=== PATIENT | male | born 1975 | race Caucasian/White ===

== ENCOUNTER → 2017-05-14 10:35 | Outpatient (CLI) | payer BC, SELFPAY ==
[2017-05-14 12:11] LABS: AST(SGOT) 38 U/L (15-37); Alanine Aminotransfer ALT/SGPT 67 U/L (16-61); Albumin, Serum 3.7 g/dL (3.2-5.0); Alkaline Phosphatase 63 U/L (45-117); Anion Gap 9 (5-15); BUN 10 mg/dL (7-18); BUN/Creat Ratio 14.7 RATIO (10-20); Calcium,Total 8.9 mg/dL (8.5-10.1); Chloride 105 mmol/L (98-107); Cholesterol 172 mg/dL (200); Creatinine, Serum 0.68 mg/dL (0.70-1.30); EST Glomerular Filtration Rate 135 mL/min (>60); Est Glom Filt Rate - Afr Amer 163 mL/min (>60); Globulin 3.8 g/dL (2.2-4.2); Glucose 109 mg/dL (74-106); High Density Lipoprotein 28 mg/dL; Potassium 4.3 mmol/L (3.5-5.1); Protein, Total 7.5 g/dL (6.4-8.2); Sodium Level 139 mmol/L (136-145); Triglycerides 272 mg/dL; Very Low Density Lipoprotein 54 mg/dL (5-40)
[2017-05-14 12:16] LABS: Hemoglobin A1c 6.8 % (4.2-6.3)
[2017-05-14 12:23] LABS: Microalbumin,Random Urine 6.9 mg/L (NO RANGE EST.); Microalbumin:Creatinine Ratio 5.8 mg/g CRE (<30 mg/g CRE)
== END ==
PROVIDERS: Family Provider Family Medicine; PCP Family Medicine; Visit Provider Family Medicine
DX: E11.9 Type 2 diabetes mellitus without complications (principal); E78.5 Hyperlipidemia, unspecified
CPT/HCPCS: 36415; 80053; 80061; 82043; 82570; 83036

== ENCOUNTER → 2017-08-05 11:27 | Outpatient (CLI) | payer BC, SELFPAY ==
--- NOTE | 2017-08-05 11:32 | RAD_ITS ---
STUDY: X-RAY CHEST REASON FOR EXAM: Male, 42 years old. Cough. Fever. Flulike symptoms. TECHNIQUE: PA and lateral views of the chest. COMPARISON: None. FINDINGS: The lungs are clear and expanded. There is no demonstrated pleural abnormality. Normal size heart. Normal mediastinum and han. Normal visualized pulmonary arteries. Normal visualized aortic arch and descending thoracic aorta. There are diffuse degenerative changes of the visualized thoracic spine. Normal visualized ribs, clavicles, and shoulders. There is no demonstrated abnormality of the visualized soft tissue structures of the upper abdomen. RAD/Chest PA and Lateral IMPRESSION: Degenerative changes, as described above. No demonstrated acute cardiopulmonary process. Electronically Signed: Kenan Saez MD at 15:51 EDT , Service support ,
[2017-08-05 14:29] LABS: Absolute Lymphocyte Count 1.79 X10^3/ul (0.83-4.51); Absolute Neutrophil Count 4.9 X10^3/uL (2.0-7.7); Basophil# 0.03 X10^3/uL; Basophil% 0.4 % (0-1); Eosinophil# 0.11 X10^3/uL; Eosinophils% 1.5 % (0-5); Hematocrit 47.4 % (40-54); Hemoglobin 16.1 g/dl (13.0-16.5); Lymphocyte # 1.79 X10^3/ul (4.0); Lymphocyte % 24.2 % (19-41); Mean Corpuscular Hgb 31.3 pg (27.0-32.0); Mean Corpuscular Volume 92.2 fL (80-94); Mean Platelet Vol. 11.4 fl (6.2-12.0); Monocyte# 0.58 X10^3/uL; Monocyte% 7.8 % (0-10); Neutrophil # 4.87 X10^3/uL (2.7-7.7); Neutrophil % 65.8 % (47-70); Platelet Count 221 K/mm3 (150-450); RBC Distribution Width CV 12.6 % (11.6-14.6); RBC Distribution Width SD 42.2 fl (35.1-43.9); Red Blood Count 5.14 M/mm3 (4.6-6.2); White Blood Count 7.4 K/mm3 (4.4-11.0)
[2017-08-05 14:31] LABS: POSITIVE COUNT NO; POSITIVE DIFFERENTIAL NO; POSITIVE MORPHOLOGY NO
== END ==
LOC: MTLAB 11:30
PROVIDERS: Family Provider Family Medicine; PCP Family Medicine; Visit Provider Family Medicine
DX: R05 Cough (principal); E11.9 Type 2 diabetes mellitus without complications
CPT/HCPCS: 36415; 71046; 85025

== ENCOUNTER 2017-11-18 18:59 | Emergency (ER) | payer BC, SELFPAY ==
[2017-11-18 19:00] VITALS: BP 165/100; PULSE 107; PULSE 113; RESP 18; TEMP 36.3; O2SAT 97; BMI 37.6
[2017-11-18] MEDS: Morphine 4 MG/ML Syringe IV (20:00)
[2017-11-18] MEDS: Diphth,Pertuss(Acell),Tet Vac 0.5 ML Vial IM (20:04)
[2017-11-18] MEDS: Cefazolin 1 GM/50 ML BAG IV (20:04)
--- NOTE | 2017-11-18 20:20 | RAD_ITS ---
STUDY: X-RAY - LEFT RADIUS AND ULNA REASON FOR EXAM: Male, 42 years old. Dog bite. TECHNIQUE: Tube view(s) of the forearm. COMPARISON: None. FINDINGS: There is soft tissue swelling and irregularity about the mid forearm. There is no opaque foreign body Normal visualized radius. Normal visualized ulna. There is no acute fracture, dislocation or destructive osseous pathology. The wrist and elbow are intact. RAD/Forearm 2 Views IMPRESSION: Soft tissue irregularity of the mid forearm without radiopaque foreign body. There is no fracture or dislocation. Electronically Signed: Mohan Mojica DO at 20:36 EDT Tel [phone], Service support ,
[2017-11-18 21:15] VITALS: BP 150/96; PULSE 106; RESP 16; O2SAT 97
--- NOTE | 2017-11-18 21:45 | ED.VIS.GEN ---
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 The dog has not been ill, shot status is unknown to the patient. He is right-hand dominant. Patient's last tetanus shot is unknown. He is unable to move his hand and having significant amount of pain in the forearm. No other injuries. Takes no daily prescriptions. Past Medical History - Allergies and Home Meds Allergies/Adverse Reactions: Allergies No Known Allergies Allergy (Verified 11/18/17 20:00) Primary Care Physician: Leo Porter DO [Primary Care Provider] - Past Medical History: None Lives: With Family Smoking Status: Former smoker Review of Systems General: Denies: Chills, Fever Cardiovascular: Denies: Chest pain, Palpitations Respiratory: Denies: Dyspnea, Cough Gastrointestinal: Denies: Abdominal pain, Nausea, Vomiting Musculoskeletal: Reports: Swelling - Left forearm, Extremity Pain - Left forearm. Inability to move left hand. Skin: Reports: Abrasions, Wounds Neurological: Reports: Numbness - Left fingers 2-5 Physical Exam Vital Signs/Narrative: Vital Signs Temp Pulse Resp BP Pulse Ox 11/18/17 21:15 106 H 16 150/96 H 97 11/18/17 19:00 97.4 F L 113 H 18 165/100 H 97 Inital Vital Signs reviewed: Yes General: Well nourished, Well developed Head: Normocephalic, Atraumatic Eyes: Perrl, EOMI Neck: Supple, Nontender Respiratory: No distress Extremities: Tenderness - Throughout left forearm. See below. No other injuries. Skin: Trauma - 5 lacerations to the left forearm, around the junction of the middle and distal thirds, both dorsal and volar in addition to at least 2 puncture wounds. Muscle is seen in several lacerations. They vary in length from 4cm to 8 cm, all full-thickness. There are also multiple abrasions in this area. No tendons are visible. The forearm is diffusely swollen and significantly tender throughout. He is holding his hand in a mildly relaxed fist formation and is unable to extend any of his fingers, he can barely move any of them. Sensation is intact throughout all 5 fingers, but decreased in 2-5. Normal sensation distally in the thumb. No hand or wrist injury. Normal range of motion about the elbow, not able to move the wrist secondary to pain. No other injuries. Neurological: Alert, Oriented x3, Cranial nerves II-XII grossly intact, Normal Gait, Parasthesia Psychological: Normal affect Diagnostic/Tx/Re-eval - Medical Decision Making The wounds were cleansed and dressed, he was given a tetanus booster/Adacel, and 1 g Ancef IV in addition to a dose of morphine. My concern is for nerve/tendon injury, he is difficult to evaluate because he cannot move his hand at all. I discussed with Dr. Segovia with orthopedics who recommends an emergent hand consultation. I discussed with Dr. Escobar with [facility] hand in [place], who states sending him to [facility] would be reasonable for hand evaluation. Patient is amenable to this but does not want to go by ambulance and wishes to go by private vehicle, he has someone to drive him. Accepted by ED physician there. ED Disposition - Plan for ED Patient: Disposition: [facility] Chief Complaint: Bite Diagnosis: Injury of left forearm, Dog bite of left forearm Referrals: Leo Porter DO [Primary Care Provider] -
--- NOTE | 2017-11-18 21:50 | ED.DCSUM_ITS ---
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 The dog has not been ill, shot status is unknown to the patient. He is right-hand dominant. Patient's last tetanus shot is unknown. He is unable to move his hand and having significant amount of pain in the forearm. No other injuries. Takes no daily prescriptions. Past Medical History - Allergies and Home Meds Allergies/Adverse Reactions: Allergies No Known Allergies Allergy (Verified 11/18/17 20:00) Primary Care Physician: Leo Porter DO [Primary Care Provider] - Past Medical History: None Lives: With Family Smoking Status: Former smoker Review of Systems General: Denies: Chills, Fever Cardiovascular: Denies: Chest pain, Palpitations Respiratory: Denies: Dyspnea, Cough Gastrointestinal: Denies: Abdominal pain, Nausea, Vomiting Musculoskeletal: Reports: Swelling - Left forearm, Extremity Pain - Left forearm. Inability to move left hand. Skin: Reports: Abrasions, Wounds Neurological: Reports: Numbness - Left fingers 2-5 Physical Exam Vital Signs/Narrative: Vital Signs Temp Pulse Resp BP Pulse Ox 11/18/17 21:15 106 H 16 150/96 H 97 11/18/17 19:00 97.4 F L 113 H 18 165/100 H 97 Inital Vital Signs reviewed: Yes General: Well nourished, Well developed Head: Normocephalic, Atraumatic Eyes: Perrl, EOMI Neck: Supple, Nontender Respiratory: No distress Extremities: Tenderness - Throughout left forearm. See below. No other injuries. Skin: Trauma - 5 lacerations to the left forearm, around the junction of the middle and distal thirds, both dorsal and volar in addition to at least 2 puncture wounds. Muscle is seen in several lacerations. They vary in length from 4cm to 8 cm, all full-thickness. There are also multiple abrasions in this area. No tendons are visible. The forearm is diffusely swollen and significantly tender throughout. He is holding his hand in a mildly relaxed fist formation and is unable to extend any of his fingers, he can barely move any of them. Sensation is intact throughout all 5 fingers, but decreased in 2- 5. Normal sensation distally in the thumb. No hand or wrist injury. Normal range of motion about the elbow, not able to move the wrist secondary to pain. No other injuries. Neurological: Alert, Oriented x3, Cranial nerves II-XII grossly intact, Normal Gait, Parasthesia Psychological: Normal affect Diagnostic/Tx/Re-eval - Medical Decision Making The wounds were cleansed and dressed, he was given a tetanus booster/Adacel, and 1 g Ancef IV in addition to a dose of morphine. My concern is for nerve/tendon injury, he is difficult to evaluate because he cannot move his hand at all. I discussed with Dr. Segovia with orthopedics who recommends an emergent hand consultation. I discussed with Dr. Escobar with [facility] hand in [place], who states sending him to [facility] would be reasonable for hand evaluation. Patient is amenable to this but does not want to go by ambulance and wishes to go by private vehicle, he has someone to drive him. Accepted by ED physician t here. ED Disposition - Plan for ED Patient: Disposition: [facility] Chief Complaint: Bite Diagnosis: Injury of left forearm, Dog bite of left forearm Referrals: Leo Porter DO [Primary Care Provider] -
[2017-11-18 22:08] VITALS: BP 163/87; PULSE 98; RESP 16; TEMP 36.9; O2SAT 97
== END 2017-11-18 22:09 | disposition short-term general hospital (02) ==
PROVIDERS: Emergency Provider Emergency Medicine; Family Provider Family Medicine; PCP Family Medicine
DX: S51.852A Open bite of left forearm, initial encounter (principal); S51.832A Puncture wound without foreign body of left forearm, initial encounter; W54.0XXA Bitten by dog, initial encounter; Y93.9 Activity, unspecified; Y92.9 Unspecified place or not applicable; Y99.9 Unspecified external cause status; Z23 Encounter for immunization; Z79.82 Long term (current) use of aspirin; Z79.4 Long term (current) use of insulin; Z79.899 Other long term (current) drug therapy; Z87.891 Personal history of nicotine dependence
CPT/HCPCS: 73090; 90715; 96365; 96375; 99285; J7050; A4216

== ENCOUNTER 2020-06-10 10:59 | Emergency (ER) | payer MEDICAID, SELFPAY ==
[2020-06-10 10:59] VITALS: BP 130/70; PULSE 85; RESP 18; TEMP 36.6; O2SAT 97; BMI 34.4
--- NOTE | 2020-06-10 11:25 | CT_ITS ---
STUDY: CT ABDOMEN AND PELVIS WITH CONTRAST REASON FOR EXAM: Male, 45 years old. Abdominal pain. Ventral hernia. RADIATION DOSAGE (If Supplied By Facility): CTDIvol = ( 16.83 ) mGy, DLP = ( 1360.45 ) mGycm TECHNIQUE: Transaxial images were obtained from the dome of the diaphragm to the symphysis pubis without oral contrast. IV 100mL Isovue-300 was administered. Sagittal and coronal images were reconstructed. Individualized dose optimization techniques were used for this CT. COMPARISON: None. FINDINGS: The visualized lung bases are unremarkable. The visualized portions of the heart are within normal limits. There is decreased attenuation of the liver consistent with steatosis. Normal gallbladder and extrahepatic biliary system. Normal spleen. Normal pancreas. Normal bilateral adrenal glands. Normal right kidney. Normal left kidney. There is a small hiatal hernia. Normal small intestine. There are multiple colonic diverticula consistent with diverticulosis. The appendix is visualized and appears normal. Normal abdominal aorta. Normal inferior vena cava. Normal retroperitoneum. Normal urinary bladder. There are prostatic calcifications. Moderate size ventral hernia containing fat and blood vessels. The neck of the hernia measures 3.8 cm. The hernia extends into the infraumbilical region. Small left inguinal hernia containing fat. There are mild degenerative changes of the visualized lumbar spine. Straightening of the normal lumbar lordosis. CT/Abdomen/Pelvis W IV Cont ONLY IMPRESSION: Moderate sized umbilical and infraumbilical hernia containing fat and mesenteric vessels. Small left inguinal hernia. Fatty infiltration of the liver. Electronically Signed: Erlin Jurado MD at 12:52 EDT , Service support ,
[2020-06-10] MEDS: Ondansetron 4 MG/2 ML Vial IV (11:50)
[2020-06-10] MEDS: Morphine 4 MG/ML Syringe IV (11:50)
[2020-06-10] MEDS: 0.9% Normal Saline 1,000 ML 1000 ML IV (11:51)
[2020-06-10 12:20] LABS: Anion Gap 4 (5-15); BUN 14 mg/dL (7-18); BUN/Creat Ratio 17.6 RATIO (10-20); Calcium,Total 9.6 mg/dL (8.5-10.1); Chloride 106 mmol/L (98-107); EST Glomerular Filtration Rate 111 mL/min (>60); Est Glom Filt Rate - Afr Amer 134 mL/min (>60); Estimated Creatinine Clearance 119.13 ml/min; Glucose 102 mg/dL (74-106); Potassium 3.9 mmol/L (3.5-5.1); Sodium Level 139 mmol/L (136-145)
[2020-06-10 12:28] LABS: Absolute Lymphocyte Count 2.34 X10^3/uL (0.83-4.51); Absolute Neutrophil Count 7.3 X10^3/uL (2.0-7.7); Basophil# 0.05 X10^3/uL; Basophil% 0.5 % (0-1); Eosinophil# 0.14 X10^3/uL; Eosinophils% 1.3 % (0-5); Hematocrit 46.6 % (40-54); Lymphocyte # 2.34 X10^3/ul (0.83-4.51); Lymphocyte % 22.5 % (19-41); Mean Corp Hgb Conc 32.2 g/dL (32-36); Mean Corpuscular Hgb 29.9 pg (27.0-32.0); Monocyte# 0.55 X10^3/uL; Monocyte% 5.3 % (0-10); NRBC Flagged by Analyzer 0 % (0-5); Neutrophil % 70.2 % (47-70); Platelet Count 213 K/mm3 (150-450); RBC Distribution Width CV 12.6 % (11.6-14.6); RBC Distribution Width SD 43.5 fl (35.1-43.9); Red Blood Count 5.01 M/mm3 (4.6-6.2); White Blood Count 10.4 K/mm3 (4.4-11.0)
--- NOTE | 2020-06-10 13:49 | ED.DCSUM_ITS ---
- ER Visit Summary Date of Service: 06/10/20 Chief Complaint: Abdominal pain History of Present Illness: The patient is a 45 M presenting with abdominal pain. Patient has abdominal hernia and has been told in the past that he would require surgery. He states that he is usually able to push it back in. He sometimes has difficulty but has always been able to reduce the hernia. Denies vomiting. He has chronically loose stool. Denies blood in his stool. Denies fever. Denies other complaints. Physical Examination: Vitals are stable. Patient is afebrile. Alert no acute distress. HEENT exam is unremarkable. Neck is supple. Lungs are clear and equal bilaterally. Heart is regular rate and rhythm. Abdomen is soft mild tenderness. No guarding or rebound. Umbilical hernia which is reducible. Extremities are unremarkable. Skin is warm and dry. Remainder of exam is unremarkable. Emergency Department Course and Treatment: Patient given morphine, Zofran IV. CBC, chemistries unremarkable. CT abdomen pelvis shows moderate sized umbilical and infraumbilical hernia containing fat and mesenteric vessels. Small left inguinal hernia. Fatty infiltration of the liver. Discussed with Dr. Carroll and she will see him in the office today. Patient was given information for close outpatient follow-up today with Dr. Carroll. Disposition: Discharge Impression: Reducible abdominal hernia This note was generated with [employer] dictation software. It may contain incorrect words, spelling, and punctuation that were not noted in review of the chart prior to signing ED Disposition - Plan for ED Patient: Disposition: Home or Assisted Living Instructions: ED Hernia (Adult) Referrals: Diane Carroll MD [STAFF PHYSICIAN] - Leo Porter DO [Primary Care Provider] -
--- NOTE | 2020-06-10 14:11 | ED.DEP ---
ED Disposition - Plan for ED Patient: Instructions: ED Hernia (Adult) Referrals: Leo Porter DO [Primary Care Provider] - Diane Carroll MD [STAFF PHYSICIAN] -
[2020-06-10 14:20] VITALS: BP 148/87; PULSE 78; RESP 16; O2SAT 99
== END 2020-06-10 14:34 | disposition home or self-care (01) ==
LOC: ED 13:12
PROVIDERS: Emergency Provider Emergency Medicine; PCP Family Medicine
DX: K40.90 Unilateral inguinal hernia, without obstruction or gangrene, not specified as recurrent (principal); R19.7 Diarrhea, unspecified; E11.9 Type 2 diabetes mellitus without complications; I10 Essential (primary) hypertension; Z72.0 Tobacco use; Z79.82 Long term (current) use of aspirin; Z79.4 Long term (current) use of insulin
CPT/HCPCS: 74177; 80048; 85025; 96361; 96374; 96375; 99283; J7030; Q9967; J2405

== ENCOUNTER 2020-06-16 11:59 | Day surgery (SDC) | payer MEDICAID, SELFPAY ==
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
--- NOTE | 2020-06-15 17:22 | SUR.PREOP ---
PT WAS NO SHOW FOR COVID TEST- CALLED PT AND HE FORGOT- PT COMING AT 1200 TOMORROW FOR COVID TEST BEFORE SURGERY
[2020-06-16 12:46] VITALS: BP 121/68; PULSE 71; RESP 16; TEMP 37.1; O2SAT 97; BMI 33.7
[2020-06-16] MEDS: Lactated Ringers 1,000 ML 100 ML IV ×3 (12:52→16:28)
[2020-06-16 12:55] LABS: Bedside Glucose 185 mg/dL (70-110)
--- NOTE | 2020-06-16 14:00 | OM_PTH ---
PATIENT: GISELA TALAMANTES [place] [facility] [place][id number] AGE/SX: 45/M ROOM: RE06/16/[address]: Dr. Diane Carroll MD : 1975 BED: DIS: 06/16/2020 SPEC #: [id number] RECD: 06/17/20 07:46 STATUS: AGUS RE #: [id number] ABEBE: 06/16/20 14:[address]: Diane Carroll DEPT: SURGICAL PATHOLOGY RECD BY: Aria Alicea ENTERED: 06/17/20 09:06 SP TYPE: OMENTUM OTHR DR: Dr. Leo Porter, DO Tissues: Omentum, NOS Procedures: Surgery Specimen Level IV HEADER OPERATION: Ventral hernia repair with mesh PRE-OP DIAGNOSIS: Large ventral hernia TISSUE SUBMITTED: Incarcerated omentum MICROSCOPIC DIAGNOSIS Incarcerated omentum, biopsy: Fibrofatty tissue with fibrosis, associated mild chronic inflammation and vascular congestion. AM:aj 06/20/2020 MICROSCOPIC DESCRIPTION Slides are reviewed. GROSS DESCRIPTION Received in fixative is one container labeled with the patient's name and designated incarcerated omentum. The specimen consists of two pieces of adipose tissue consistent with omentum tissue measuring 26 x 13 x 4 cm and 3 x 2 x 2 cm. A focal area shows congestion. No mass lesion is identified. Intake Specialist sections are submitted in four cassettes. / SJ:aj 06/17/20 TC:5 CPT: 44892
[2020-06-16] MEDS: Cefazolin 2 GM in 0.9% Normal Saline 100 ML IV (14:04)
[2020-06-16] MEDS: Lidocaine 1% /Epi 1:100 (20ml) 20 ML Vial (14:15)
--- NOTE | 2020-06-16 14:15 | EX.PCM.DISCH ---
Discharge Instructions Outpatient Procedure Reason For Visit: VENTRAL HERNIA REPAIR Diet Discharge Diet: No restrictions Follow Up Care Test Results: Please ignore upper heading - these are postoperative instructions Recommended pain control regimen - May take 600 mg ibuprofen (Motrin) and then in 3-4 hours, may take 650 mg acetaminophen (Tylenol), then in 3-4 hours may take 600 mg ibuprofen, then in 3-4 hours may take 650 mg acetaminophen and so on for 2-3 days May take narcotic pain medication for pain that is not controlled by above and at night for comfort through the night Leave dressings in place May get dressings wet in shower - do not scrub in the area and pat dry Do not soak - no tub baths/swimming Ice applied to areas of discomfort may help For hernia surgery - ice packs to the groin area as tolerated will decrease swelling and bruising though they may still occur. No lifting/pushing/pulling greater than 20 pounds for 8 weeks Please call for a follow up appointment in 1-2 weeks, Discharge Plan Admission Attending Provider: Diane Carroll Primary Care Provider: Leo Porter Instructions Additional Instructions / Restrictions: Recommended pain control regimen - May take 600 mg ibuprofen (Motrin) and then in 3-4 hours, may take 650 mg acetaminophen (Tylenol), then in 3-4 hours may take 600 mg ibuprofen, then in 3-4 hours may take 650 mg acetaminophen and so on for 2-3 days May take narcotic pain medication for pain that is not controlled by above and at night for comfort through the night Leave dressings in place May get dressings wet in shower - do not scrub in the area and pat dry Do not soak - no tub baths/swimming Ice applied to areas of discomfort may help No lifting/pushing/pulling greater than 20 pounds for 6-8 weeks Please call for a follow up appointment in 1-2 weeks, May remove the abdominal binder (it has velcro) and reapply as needed. Discharge Orders/Prescriptions Prescriptions: New hydrocodone-acetaminophen 5-325 mg tablet 1 tab PO Q8H 5 Days Qty: 15 RF: 0 No Action fenofibrate nanocrystallized 145 MG tablet 145 mg PO DAILY RF: 0 metformin 500 MG tablet,ER rafaela.retention 24 hr 1,000 mg PO BID RF: 0 atorvastatin 20 MG tablet 20 mg PO DAILY RF: 0 aspirin [Aspir-Low] 81 MG tablet,delayed release (DR/EC) 81 mg PO DAILY RF: 0 lisinopril 10 MG tablet 10 mg PO DAILY RF: 0 lorazepam 2 mg Tablet 2 mg PO QHS PRN (Reason: Sleep) RF: 0 Novolin 70/30 U-100 Insulin 100 unit/mL (70-30) Solution 30 - 40 ml SUBCUT BID RF: 0 Other Ambulatory Orders: Hemoglobin A1c (Routine) Timeframe: 20200615 Facility: [facility] - Location: Laboratory Ordered By: Dr. Ty Contreras Referrals: Leo Porter DO [Primary Care Provider] - Disposition Discharge Orders: Discharge Patient (Routine); Ordered 06/16/20 Ordered By: Dr. Diane Carroll
--- NOTE | 2020-06-16 15:44 | PCM.OPRPT ---
Report of Operation Date of Procedure: 06/16/20 Pre-Operative Diagnosis: incarcerated ventral hernia Post-Operative Diagnosis: incarcerated ventral hernia - incarcerated omentum Surgery/Procedure Performed:: large ventral hernia with incarcerated omentum Description of Surgical Findings:: large amount of omentum incarcerated in ventral hernia robotics mechanic: Hubert Lu Type of Anesthesia: General/Regional Anesthesiologist: Lionel Tidwell Specimen's removed: incarcerated omentum, excess skin from incarcerated ventral hernia Estimated Blood Loss (mL): 25 Fluids Replaced: 2000 ml RL Description of Procedure: After informed consent was obtained, the patient was brought to the Operating Room. Appropriate time out protocol was followed. He was placed in the supine position. The patient was then placed under anesthesia. The abdomen was then prepped with a sterile surgical skin preparation. Sterile surgical drapes were placed. This skin and subcutaneous tissues were then widely infiltrated with the local anesthetic. A skin incision was then made with a 15 blade scalpel over the hernia in a vertical midline fashion. It was carried down to the subcutaneous tissues using sharp dissection. Any hemorrhage was adequately controlled with electrocautery. Blunt dissection was done to separate the subcutaneous tissues from the large incarcerated hernia sac. This took some time due to the large nature of the hernia. The sac once freed of the subcutaneous tissues was then freed from the fascia. The sac was then freed up from the fascial surface. The fascial defect was then properly outlined. It was 3.5 cm in maximum dimension. There was omentum that was incarcerated in the sac and could not be reduced back into the abdominal cavity due to the patient's body habitus. Therefore the excess omentum was transected and ligated with vicryl suture. The remained was reduced back into the intraabdominal cavity. The peritoneum was then reapproximated with continuous 0 vicryl suture. The fascial defect was then closed with interrupted #1 PDS suture in a figure of 8 interrupted fashion. Hemostasis was controlled with electrocautery. The subdermis was reapproximated with interrupted 2-0 vicryl sutures. The subdermis was reappoximated with 3-0 vicryl suture. The skin incision was reapproximated with a running 4-0 Monocryl suture. Cavilon and steristrips were placed to reinforce the skin closure and a sterile opsite dressing was applied. The patient was brought from to the Recovery Room in stable condition. Complications none noted Admit VTE Documentation VTE Present on Admission: Yes VTE Mechan Device Prophylaxis: SCD's
[2020-06-16 16:20] VITALS: BP 121/68; BP 151/86; PULSE 88; RESP 16; TEMP 36.2; O2SAT 97
[2020-06-16 16:30] VITALS: BP 121/68; BP 130/75; PULSE 81; RESP 16; O2SAT 97
[2020-06-16 16:45] VITALS: BP 114/69; BP 121/68; PULSE 70; RESP 16; O2SAT 96
[2020-06-16 16:55] VITALS: BP 115/66; BP 121/68; PULSE 74; RESP 16; TEMP 36.5; O2SAT 96
[2020-06-16] MEDS: HYDROcodone Bitartrate/Apap 5/325 Tablet PO (17:34)
[2020-06-16 18:02] VITALS: BP 112/59; BP 121/68; PULSE 84; RESP 16; TEMP 36.5; O2SAT 98
== END 2020-06-16 18:14 ==
LOC: SDC 12:01 → AC 12:03
PROVIDERS: PCP Family Medicine; Visit Provider Surgery
PROC: (CPT 49561; principal; 2020-06-16 13:45)
DX: K43.6 Other and unspecified ventral hernia with obstruction, without gangrene (principal); E11.9 Type 2 diabetes mellitus without complications; I10 Essential (primary) hypertension; E78.00 Pure hypercholesterolemia, unspecified; F17.210 Nicotine dependence, cigarettes, uncomplicated; E66.9 Obesity, unspecified; Z68.35 Body mass index [BMI] 35.0-35.9, adult; Z79.4 Long term (current) use of insulin; Z79.82 Long term (current) use of aspirin; Z79.899 Other long term (current) drug therapy
CPT/HCPCS: 00752; 49561; 82962; 87426; 88305; J7050; J7120; J2405

== ENCOUNTER 2023-11-16 23:56 | Emergency (ER) | payer SELFPAY ==
[2023-11-16 23:57] VITALS: BP 127/106; PULSE 100; RESP 22; TEMP 36.6; O2SAT 98
[2023-11-17 00:38] VITALS: BMI 36.3
[2023-11-17 01:12] LABS: Bacteria 0 SEEN /hpf (None Seen); Mucous, Urine 0 SEEN /hpf (<or=2+); Red Blood Cells-Urine 0 SEEN /hpf (0-5); Squamous Epithelial Cells - UA 0 SEEN /hpf (0-5); White Blood Cells 0 SEEN /hpf (0-5)
[2023-11-17 01:14] LABS: Color, Urine Yellow (Yellow); Glucose, Dipstick 1000 mg/dl (Normal); Ketone-Dipstick Negative (Negative); Leukocyte Esterase-Dipstick Negative /ul (Negative); Nitrite-Dipstick Negative (Negative); Occult Blood-Urine 10 /ul (Negative); Protein-Dipstick 15 mg/dl (Negative); Urine Bilirubin Dipstick Negative (Negative); Urine Clarity Clear (Clear); Urine Urobilinogen Normal (Normal)
[2023-11-17 01:15] LABS: Absolute Lymphocyte Count 2.44 X10^3/uL (0.83-4.51); Basophil# 0.07 X10^3/uL; Basophil% 0.6 % (0-1); Eosinophil# 0.06 X10^3/uL; Eosinophils% 0.5 % (0-5); Hemoglobin 14.9 g/dL (13.0-16.5); Lymphocyte # 2.44 X10^3/ul (0.83-4.51); Lymphocyte % 21.5 % (19-41); Mean Corp Hgb Conc 34.7 g/dL (32-36); Mean Corpuscular Hgb 31.5 pg (27.0-32.0); Mean Corpuscular Volume 90.9 fL (80-94); Mean Platelet Vol. 12.8 fl (6.2-12.0); Monocyte# 0.71 X10^3/uL; Monocyte% 6.3 % (0-10); NRBC Flagged by Analyzer 0 % (0-5); Neutrophil # 7.98 X10^3/uL (2.7-7.7); Neutrophil % 70.3 % (47-70); POSITIVE COUNT YES; RBC Distribution Width CV 12.7 % (11.6-14.6); RBC Distribution Width SD 41.6 fl (35.1-43.9); Red Blood Count 4.73 M/mm3 (4.6-6.2); White Blood Count 11.4 K/mm3 (4.4-11.0)
[2023-11-17] MEDS: Ondansetron 4 MG/2 ML Vial IV (01:16)
[2023-11-17] MEDS: Famotidine 200 MG/20 ML MDV 20 MG in 0.9% Normal Saline (Pres. free 8 ML 300 MG IV (01:17)
[2023-11-17] MEDS: 0.9% Normal Saline (1000mL) 1,000 ML 999 ML IV (01:17)
[2023-11-17] MEDS: Morphine 4 MG/ML Syringe IV (01:17)
[2023-11-17] MEDS: Ketorolac 30 MG/ML Syringe IV (01:48)
[2023-11-17 01:51] VITALS: BP 130/59; PULSE 81; RESP 16; TEMP 37.2; O2SAT 98
[2023-11-17 01:59] LABS: Platelet Count 138 K/mm3 (150-450)
[2023-11-17 03:16] LABS: AST(SGOT) 47 U/L (15-37); Alanine Aminotransfer ALT/SGPT 51 U/L (16-61); Albumin, Serum 3.5 g/dL (3.2-5.0); Alkaline Phosphatase 79 U/L (45-117); Anion Gap 15 (5-15); BUN 23 mg/dL (7-18); BUN/Creat Ratio 25.2 RATIO (10-20); Bilirubin, Direct 0.07 mg/dL (0.00-0.30); Calcium,Total 9.2 mg/dL (8.5-10.1); Chloride 104 mmol/L (98-107); Creatinine, Serum 0.91 mg/dL (0.70-1.30); EST Glomerular Filtration Rate 94 mL/min (>60); Est Glom Filt Rate - Afr Amer 113 mL/min (>60); Estimated Creatinine Clearance 124.59 ml/min; Globulin 3.7 g/dL (2.2-4.2); Glucose 330 mg/dL (74-106); Lipase 36 U/L (13-75); Potassium 4.1 mmol/L (3.5-5.1); Protein, Total 7.2 g/dL (6.4-8.2); Sodium Level 137 mmol/L (136-145)
--- NOTE | 2023-11-17 03:25 | CT_ITS ---
EXAM: CT ABDOMEN AND PELVIS WITH INTRAVENOUS CONTRAST CLINICAL INDICATION: abd pain TECHNIQUE: Helically acquired images were obtained of the abdomen and pelvis with intravenous contrast. This CT exam was performed using one or more of the following dose reduction techniques: automated exposure control, adjustment of the mA and/or kV according to patient size, and/or use of iterative reconstruction technique. CONTRAST: IV 100mL Isovue-370 RADIATION DOSE: CTDIvol = 15.14 mGy, DLP = 1338.29 mGy-cm COMPARISON: CT abdomen and pelvis 06/10/2020 FINDINGS: LOWER THORAX: Unremarkable. Lung bases are clear. No cardiomegaly. No significant pericardial effusion. ABDOMEN: LIVER: Hepatomegaly with fatty infiltration. GALLBLADDER AND BILE DUCTS: Unremarkable. No calcified gallstones. No gallbladder distention or wall edema. No intra- or extrahepatic biliary ductal dilation. PANCREAS: Unremarkable. No focal cystic or solid mass. SPLEEN: Unremarkable. Normal size without focal cystic or solid mass. ADRENALS: Unremarkable. No nodules. KIDNEYS AND URETERS: Unremarkable. Normal renal size and position. No hydronephrosis. STOMACH AND BOWEL: Unremarkable. No stomach or bowel distention. No focal inflammatory change. PELVIS: APPENDIX: The appendix is normal. BLADDER: Unremarkable. REPRODUCTIVE: Unremarkable as visualized. No mass. ABDOMEN and PELVIS: INTRAPERITONEAL SPACE: Unremarkable. No ascites or other fluid collection. No free air. BONES/JOINTS: Degenerative changes of the spine. No suspicious lytic or blastic abnormality. SOFT TISSUES: Fat containing left inguinal hernia. VASCULATURE: Unremarkable. Abdominal aorta is non-dilated. LYMPH NODES: Unremarkable. No enlarged lymph nodes. CT/Abdomen/Pelvis W IV Cont ONLY IMPRESSION: 1. No acute findings in the abdomen/pelvis. 2. Fat containing left inguinal hernia. No herniated bowel. 3. Hepatomegaly with fatty infiltration. Electronically Signed: Pool Giles MD at 4:00 EDT ,
[2023-11-17 03:45] VITALS: BP 105/61; PULSE 77; RESP 16; O2SAT 98
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
[2023-11-17 04:18] VITALS: BP 107/57; PULSE 78; RESP 16; TEMP 36.7; O2SAT 99
== END 2023-11-17 04:21 | disposition home or self-care (01) ==
PROVIDERS: Emergency Provider Emergency Medicine; PCP Family Medicine; Visit Provider Emergency Medicine
DX: R10.11 Right upper quadrant pain (principal); E11.9 Type 2 diabetes mellitus without complications; Z79.4 Long term (current) use of insulin; I10 Essential (primary) hypertension; E78.5 Hyperlipidemia, unspecified; F17.210 Nicotine dependence, cigarettes, uncomplicated; Z79.82 Long term (current) use of aspirin; Z79.899 Other long term (current) drug therapy
CPT/HCPCS: 74177; 80048; 80076; 81001; 83690; 85025; 96361; 96374; 96375; 99283; Q9967; A4216; J2405; J3490

== ENCOUNTER → 2024-12-02 | Outpatient (CLI) | payer OTHER, SELFPAY ==
--- NOTE | 2024-12-02 10:41 | RAD_ITS ---
PROCEDURE: L/S SPINE MIN 4 VIEWS 12/02/2024 REASON FOR EXAM: BILATERAL LEG PAIN, STENOSIS SUSPECTED TECHNIQUE: Procedure Code: RADSPLS Modality: DX Procedure: L/S SPINE MIN 4 VIEWS FINDINGS: No evidence acute fracture or dislocation. No visualized pars defects. Mild degenerative changes of the visualized spine. Vertebral body heights are maintained. Normal alignment. RAD/L/S Spine Min 4 Views IMPRESSION: Spondylosis. Reading Location: [id number]
[2024-12-02 12:22] LABS: Hematocrit 50.7 % (40-54); Hemoglobin 17.5 g/dL (13.0-16.5); Immature Granulocytes Count 0.040 X10^3/uL (0.0-0.0); Mean Corp Hgb Conc 34.5 g/dL (32-36); Mean Corpuscular Volume 88.6 fL (80-94); Mean Platelet Vol. 11.1 fl (6.2-12.0); NRBC Flagged by Analyzer 0 % (0-5); Platelet Count 213 K/mm3 (150-450); RBC Distribution Width CV 13.6 % (11.6-14.6); RBC Distribution Width SD 44.0 fl (35.1-43.9); Red Blood Count 5.72 M/mm3 (4.6-6.2); White Blood Count 8.7 K/mm3 (4.4-11.0)
[2024-12-02 13:01] LABS: AST(SGOT) 19 U/L (<=37); Alanine Aminotransfer ALT/SGPT 21 U/L (<=46); Albumin, Serum 4.5 g/dL (3.5-5.0); Alkaline Phosphatase 96 U/L (40-129); Anion Gap 12 (5-15); BUN 14 mg/dL (4-19); BUN/Creat Ratio 26.8 RATIO (10-20); CPK Total, Creatine Kinase 155 U/L (24-195); Calcium,Total 9.8 mg/dL (7.6-11.0); Carbon Dioxide 22.5 mmol/L (21.0-32.0); Chloride 101 mmol/L (98-108); Cholesterol 191 mg/dL (<=200); Globulin 3.3 g/dL (2.2-4.2); Glucose 140 mg/dL (70-99); Low Density Lipoprotein Calc. 74 mg/dL; PSA,Total - Annual Screen 1.40 ng/mL (0.02-4.00); Potassium 4.3 mmol/L (3.3-5.1); Triglycerides 399 mg/dL; Very Low Density Lipoprotein 80 mg/dL (5-40); cholesterol:hdl ratio screen 5.13
[2024-12-02 15:32] LABS: Creatinine, Urine (random) 100.00 mg/dL (39.00-259.00); Microalbumin,Random Urine < 12.0 mg/L (<20 mg/L)
== END | disposition home or self-care (01) ==
LOC: MTLAB 10:39
PROVIDERS: PCP Family Medicine; Referring Provider Family Medicine; Visit Provider Family Medicine
DX: Z00.00 Encounter for general adult medical examination without abnormal findings (principal); E11.65 Type 2 diabetes mellitus with hyperglycemia; Z12.5 Encounter for screening for malignant neoplasm of prostate; M79.10 Myalgia, unspecified site; M79.604 Pain in right leg; M79.605 Pain in left leg
CPT/HCPCS: 36415; 72110; 80053; 80061; 82043; 82550; 82570; 83036; 84153; 85025; 85652; G0103